=== PATIENT | female | born 1970 | race Two or more races ===

== ENCOUNTER 2017-12-23 16:54 | Emergency (ER) | payer MEDICAID, OTHER ==
[~2017-12-23] VITALS: Ht 167.6 cm; Wt 70.3 kg
[2017-12-23] MEDS ORDERED: DEXAMETHASONE SOD PHOS 10MG/1ML VIAL INJ IM ONE (19:30)
[2017-12-23 19:36] VITALS: BP 104/60
== END 2017-12-23 19:53 | disposition home or self-care (01) ==
LOC: ER 16:57
DX: J06.9 Acute upper respiratory infection, unspecified (principal); H66.93 Otitis media, unspecified, bilateral; R42 Dizziness and giddiness; Z88.0 Allergy status to penicillin
CPT/HCPCS: 70450; 96372; 99284; J1100

== ENCOUNTER 2022-12-29 10:29 | Emergency (ER) | payer MEDICAID ==
[~2022-12-29] VITALS: Ht 152.4 cm; Wt 71.5 kg
[2022-12-29] MEDS ORDERED: MECLIZINE HCL 25 MG TAB PO ONE (11:00)
[2022-12-29 11:13] LABS: Basophils # (auto) 0 10 ^3/uL (0-0.2); Basophils % (auto) 0.5 % (0.0-2.0); Eosinophils # (auto) 0.1 10 ^3/uL (0-0.8); Eosinophils % (auto) 1.1 % (0.0-7.0); Hematocrit 43.4 % (36.0-46.0); Hemoglobin 14.5 g/dL (12.2-16.2); Lymphocytes % (auto) 41.9 % (10.0-50.0); Mean Corpuscular Hemoglobin 27.9 pg (28.0-32.0); Mean Corpuscular Hgb Conc. 33.4 g/dL (32.0-36.0); Mean Corpuscular Volume 83.6 fL (80.0-100.0); Monocytes # (auto) 0.3 10 ^3/uL (0-1.3); Monocytes % (auto) 5.6 % (0.0-12.0); Neutrophils # (auto) 2.4 10 ^3/uL (1.6-8.6); Neutrophils % (auto) 50.9 % (37.0-80.0); Nucleated Red Blood Cells % 0.1 %; Red Blood Cells 5.19 10^6/uL (4.0-5.20); Red Cell Distribution Width 14.3 % (11.8-14.3); White Blood Cell 4.8 10^3/uL (4.4-10.8)
[2022-12-29 11:49] LABS: Urine Bacteria NONE SEEN /hpf (None Seen); Urine Blood Negative /uL (Negative); Urine Specific Gravity 1.009 (1.001-1.035); Urine WBC 1 /hpf (0 - 5)
[2022-12-29 11:53] LABS: Potassium 3.7 mmol/L (3.5-5.1)
[2022-12-29 12:00] LABS: BUN/Creatinine Ratio 31.7; Bilirubin, Total 0.6 mg/dL (0.2-1.0); Calcium 9.5 mg/dL (8.5-10.1); Magnesium 2.5 mg/dL (1.6-2.6); Total Protein 7.2 g/dL (6.4-8.2)
[2022-12-29 14:08] VITALS: BP 104/74
[2022-12-29] MEDS ORDERED: MECL25TA18 PO (17:10)
== END 2022-12-29 21:00 | disposition home or self-care (01) ==
LOC: ER 10:29
DX: R42 Dizziness and giddiness (principal); J45.909 Unspecified asthma, uncomplicated; R51.9 Headache, unspecified; Z79.899 Other long term (current) drug therapy
CPT/HCPCS: 36415; 70450; 71045; 80053; 81001; 82962; 83605; 83735; 84484; 85025; 93005; 99285; J8597

== ENCOUNTER 2024-06-11 13:23 | Emergency (ER) | payer MEDICAID ==
[~2024-06-11] VITALS: Ht 152.4 cm; Wt 69.9 kg
[~2024-06-11 13:23] MED LIST: MECL-90 PO
[2024-06-11 15:33] LABS: Basophils # (auto) 0 10 ^3/uL (0-0.2); Basophils % (auto) 0.5 % (0.0-2.0); Eosinophils # (auto) 0 10 ^3/uL (0-0.8); Eosinophils % (auto) 0.5 % (0.0-7.0); Hemoglobin 13.3 g/dL (12.2-16.2); Lymphocytes # (auto) 1.9 10 ^3/uL (0.4-5.4); Lymphocytes % (auto) 30.5 % (10.0-50.0); Mean Corpuscular Hemoglobin 27.7 pg (28.0-32.0); Mean Corpuscular Hgb Conc. 33.1 g/dL (32.0-36.0); Mean Corpuscular Volume 83.6 fL (80.0-100.0); Monocytes # (auto) 0.4 10 ^3/uL (0-1.3); Neutrophils % (auto) 62.5 % (37.0-80.0); Platelet Count (auto) 248 10^3/uL (140-450); Red Blood Cells 4.79 10^6/uL (4.0-5.20); Red Cell Distribution Width 14.7 % (11.8-14.3); White Blood Cell 6.4 10^3/uL (4.4-10.8)
[2024-06-11 15:40] LABS: Chloride 111 mmol/L (98-107); Potassium 3.6 mmol/L (3.5-5.1); Sodium 141 mmol/L (136-145)
[2024-06-11 15:41] LABS: Anion Gap 4 (5-15); Carbon Dioxide 26 mmol/L (20-30)
[2024-06-11 15:42] LABS: Calcium 10.2 mg/dL (8.7-10.4)
[2024-06-11 15:46] LABS: Glucose 107 mg/dL (74-106)
[2024-06-11 15:47] LABS: BUN/Creatinine Ratio 21.4 (10.0-20.0); Blood Urea Nitrogen 12 mg/dL (9-23)
[2024-06-11 15:48] LABS: INR 0.93 (0.9-1.15); Prothrombin Time 9.9 sec (9.3-11.8)
[2024-06-11 18:50] VITALS: BP 107/47; PULSE 100; RESP 18; TEMP 98.6; O2SAT 97
== END 2024-06-11 18:54 | disposition home or self-care (01) ==
LOC: ER 13:23
DX: S86.912A Strain of unspecified muscle(s) and tendon(s) at lower leg level, left leg, initial encounter (principal); J45.909 Unspecified asthma, uncomplicated; Z88.0 Allergy status to penicillin; X58.XXXA Exposure to other specified factors, initial encounter; Y93.89 Activity, other specified; Y92.89 Other specified places as the place of occurrence of the external cause; Y99.8 Other external cause status
CPT/HCPCS: 36415; 80048; 85025; 85379; 85610; 93971

== ENCOUNTER 2024-11-09 07:37 | Emergency (ER) | payer MEDICAID ==
[~2024-11-09] VITALS: Ht 152.4 cm; Wt 68.8 kg
[2024-11-09 08:02] VITALS: BP 102/60; PULSE 109; TEMP 97.9
--- NOTE | 2024-11-09 08:21 | ED.PDOC ---
Eye-HPI HPI Comments A 58 YEAR OLD FE/MALE PRESENTS TO THE ED WITH COMPLAINT OF SORE THROAT. PATIENT STATES SHE HAS BEEN EXPERIENCING A SORE THROAT, MILD COUGH, AND CONGESTION FOR THE PAST 6 DAYS. PATIENT REPORTS HER PAIN IS WORSE WHEN SWALLOWING. PATIENT NOTES SHE WENT TO [facility] 4 DAYS AGO AND HAD A COVID-19, INFLUENZA SWABS DONE ALL OF WHICH WERE NEGATIVE AND WAS PRESCRIBED DOXYCYCLINE AND ROBITUSSIN DM AFTER BEING DIAGNOSED WITH PNEUMONIA. PT HAS HX OF ASTHMA AND USES ALBUTEROL INHALER AT HOME. PATIENT DENIES FEVER, CHILLS, SHORTNESS OF BREATH, CHEST PAIN, ABDOMINAL PAIN, NAUSEA, VOMITING, HEADACHE, OR OTHER COMPLAINTS. NO OTHER SYMPTOMS OR MODIFYING FACTORS AT THIS TIME. PATIENT IS ALERT, ORIENTED X 4, AND HAS STEADY GAIT. Chief Complaint: Shortness of Breath Time Seen by MD: 07:43 Primary Care Provider: angela Peralta Notes: Nurses Notes, Medications, Allergies Allergies: Coded Allergies: Penicillins (Unverified Allergy, Unknown, 12/23/17) Home Meds Active Scripts Meclizine Hcl (Meclizine Hcl) 25 Mg Tab, 25 MG PO BIDP PRN for 3 Days, #10 MG Prov:LEONIE SELF 12/29/22 Information Source: Patient Mode of Arrival: Ambulatory Timing: Days Duration: Since onset, Days Prehospital treatment: None Quality: Pain, Red Lids: Normal Conjunctiva: Normal Cornea: Normal Pupils: Normal EOM: Normal Fundus: Normal Slit lamp exam: Normal Anterior chamber: Normal Mouth: Normal ENT Ear Exam: Normal, Normal, Normal Nose: Normal Sinuses: Normal Oropharynx: Tonsillar hypertrophy, Red Onset: Spontaneous Throat Exposed to: None History of: None Last Tetanus: Unknown Modifying factors: Nothing Associated signs and symptoms: Nasal Symptoms, Sore Throat Past Medical History PAST MEDICAL HISTORY: Anxiety, Asthma Surgical History: Denies all surgeries 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[employer]DER History Family History Family History: Reviewed,noncontributory to illness Social History Smoker: Non-Smoker Alcohol: Denies ETOH Use Drugs: Denies Drug Use Lives In: Home Constitutional: reports: others (ANXIOUS ); denies: chills, diaphoresis, fatigue, fever, malaise, sweats, weakness EENTM: reports: nose congestion, throat pain, throat swelling, voice changes; denies: blurred vision, double vision, ear bleeding, ear discharge, ear drainage, ear pain, ear ringing, eye pain, eye redness, hearing loss, mouth pain, mouth swelling, nasal discharge, nose bleeding, nose pain, photophobia, tearing, others Respiratory: reports: cough; denies: hemoptysis, orthopnea, SOB at rest, shortness of breath, SOB with excertion, stridor, wheezing, others Cardiovascular: denies: chest pain, dizzy spells, diaphoresis, Dyspnea on exertion, edema, irregular heart beat, left arm pain, lightheadedness, palpitations, PND, syncope, others Gastrointestinal: denies: abdomen distended, abdominal pain, blood streaked bowels, constipated, diarrhea, dysphagia, difficulty swallowing, hematemesis, melena, nausea, poor appetite, poor fluid intake, rectal bleeding, rectal pain, vomiting, others Genitourinary: denies: abnormal vagina bleeding, burning, dyspareunia, dysuria, flank pain, frequency, hematuria, incontinence, pain, , vagina discharge, urgency, others Neurological: denies: dizziness, fainting, headache, left sided numbness, left sided weakness, numbness, paresthesia, pre-existing deficit, right sided numbness, right sided weakness, seizure, speech problems, tingling, tremors, weakness, others Musculoskeletal: denies: back pain, gout, joint pain, joint swelling, muscle pain, muscle stiffness, neck pain, others Integumetry: denies: bruises, change in color, change in hair/nails, dryness, laceration, lesions, lumps, rash, wounds, others Allergic/Immunocompromised: denies: Difficulty Healing, Frequent Infections, H leonel, Itching, others Hematologic/Lymphatic: denies: anemia, blood clots, easy bleeding, easy bruising, swollen glands, others Endocrine: denies: excessive hunger, excessive sweating, excessive thirst, excessive urination, flushing, intolerance to cold, intolerance to heat, unexplained weight gain, unexplained weight loss, others Psychiatric: denies: anxiety, bipolar disorder, depression, hopeless, panic disorder, schizophrenia, sleepless, suicidal, others All Other Systems: Reviewed and Negative Physical Exam General Appearance: No Apparent Distress, Normal HEENT: PERRL/EOMI, Pharyngeal Erythema (TONSILLAR SWELLING, NO EXUDATES. ), TMs Normal Neck: Full Range of Motion, Non-Tender, Normal, Normal Inspection Respiratory: Chest Non-Tender, Decreased Breath Sounds, Expiration, No Accessory Muscle Use, No Respiratory Distress, Rhonchi, Wheezing (MILD ) Cardiovascular: No Edema, No JVD, No Murmur, No Gallop, Normal Peripheral Pulses, Regular Rate/Rhythm Breast Exam: Deferred Gastrointestinal: No Organomegaly, Non Tender, No Pulsatile Mass, Normal Bowel Sounds, Soft Genitalia: Deferred Pelvic: Deferred Rectal: Deferred Extremities: No calf tenderness, Normal capillary refill, Normal inspection, Normal range of motion, Non-tender, No pedal edema Musculoskeletal : Apperance: Normal Neurologic: Alert, online marketing analyst II-XII nml as Tested, No Motor Deficits, Normal Affect, Normal Mood, No Sensory Deficits Cerebellar Function: Normal Reflexes: Normal Skin: Dry, Normal Color, Warm Peripheral Pulses: 2+ carotid (R), 2+ carotid (L) Lymphatic: No Adenopathy Was a procedure done? Was a procedure done?: No EENT DIFF Eye: N/A Ear: Otitis Media, Pharyngitis, Sinusitis Nose: N/A Mouth: N/A Sore Throat: Pharyngitis, Streptococcal, Viral Pharyngitis, URI X-Ray, Labs, Meds, VS Vital Signs Date Time Temp Pulse Resp B/P (MAP) Pulse Ox O2 Delivery O2 Flow Rate FiO2 11/09/24 08:32 18 95 Room Air* 0 21 11/09/24 08:02 109 22 93 Room Air 11/09/24 08:02 97.9 109 22 102/60 (74) 93 97.9 11/09/24 07:40 97.9 109 22 102/60 (74) 93 11/09/24 07:40 Room Air* 0 21 11/09/24 07:40 93 Room Air* 0 21 Current Medications Medications (Trade) Dose Ordered Sig/Paulina Route Start Time Stop Time Status Last Admin Methylprednisolone Sodium Succinate (Solu Medrol) 125 mg ONCE ONCE IM 11/09/24 08:30 11/09/24 08:31 DC 11/09/24 08:22 Ceftriaxone Sodium (Rocephin) 1,000 mg ONCE ONCE IM 11/09/24 08:30 11/09/24 08:31 DC 11/09/24 08:22 Albuterol (Ventolin Medneb) 2.5 mg ONCE ONCE NEB 11/09/24 08:30 11/09/24 08:31 DC 11/09/24 08:32 Ipratropium Muse (Atrovent Medneb) 0.5 mg ONCE ONCE NEB 11/09/24 08:30 11/09/24 08:31 DC 11/09/24 08:32 Procedure: XY CHEST TWO VIEWS ROUTINE 11/09/2024 08:09 AM Indication: COUGH AND SOB, HX OF PNEUMONIA X 6 DAYS AGO Comparison: None TECHNIQUE: XY CHEST TWO VIEWS ROUTINE FINDINGS: Medical devices: None. Cardiomediastinal: The heart is normal in size. Pulmonary vasculature is within normal limits. Lungs: No focal pulmonary opacity is seen. The costophrenic angles are clear. No pneumothorax. Bones/soft tissues: No acute abnormality is noted. IMPRESSION: 1. No acute cardiopulmonary disease. ATED BY: NAOMI NICHOLS MD DICTATED DATE/TIME: 11/09/24822 SIGNED BY: NAOMI NICHOLS MD SIGNED DATE/TIME: 11/09/24822 CC: X-Ray, Labs, Meds, VS Comment EXTERNAL MEDICAL RECORDS REVIEWED: [NONE] INDEPENDENT HISTORIANS: [NONE] SOCIAL DETERMINANTS OF HEALTH: [NONE] LABS ORDERED: NONE REVIEWED AND INTERPRETED RESULTS: NONE IMAGING ORDERED: XR CHEST TREATMENTS ORDERED: ROCEPHIN 1G IM, SOLU-MEDROL 125MG IM, DUONEB TREATMENT 3MG INHL PROCEDURES PERFORMED: NONE CRITICAL CARE TIME: NONE I HAVE DISCUSSED THE PATIENT WITH THE ATTENDING PHYSICIAN DR. GARCIA AND HE AGREES WITH THE PATIENT'S PLAN OF CARE AND DISPOSITION. BASED ON HISTORY OF PRESENT ILLNESS, AND PHYSICAL EXAM, PATIENT WILL BE DISCHARGED HOME. DISCUSSED PLAN FOR DISCHARGE HOME WITH RX []. MEDICATION WARNINGS GIVEN. SHARED DECISION MAKING: PATIENT INSTRUCTED TO FOLLOW UP WITH PRIMARY CARE PROVIDER IN 1-2 DAYS FOR RE-EVALUATION OF SYMPTOMS. PATIENT VERBALIZES UNDERSTANDING TO RETURN TO ED FOR NEW OR WORSENING SYMPTOMS OR IF FOLLOW UP WITH PCP CANNOT BE OBTAINED. PATIENT FEELS COMFORTABLE GOING HOME AT THIS TIME. ALL QUESTIONS ADDRESSED AT TIME OF DISCHARGE. Images Reviewed?: Images reviewed and evaluated by me Time of 1ST Reevaluation: 09:00 Reevaluation 1ST: Improved Patient Education/Counseling: Diagnosis, Treatment, Need For Follow Up Family Education/Counseling: Diagnosis, Treatment, Need For Follow Up Medical Screening: No EMC Exist At This Time Departure 1 Departure Time of Disposition: 09:00 Impression: Primary Impression: Acute asthmatic bronchitis Additional Impression: Acute tonsillitis Qualified Codes: J03.90 - Acute tonsillitis, unspecified Disposition: HOME / SELF CARE / HOMELESS Condition: Stable Additional Instructions: FOLLOW-UP WITH PCP IN 1 TO 2 DAYS. TAKE MEDICATIONS PRESCRIBED. RETURN TO ED FOR ANY NEW OR WORSENING SYMPTOMS. e-Prescriptions Lidocaine HCl (Mouth-Throat) (Lidocaine HCl Viscous) 2 % Nela 10 ML MT TID, #100 ML Prov: BLU MCALLISTER 11/09/24 Methylprednisolone (Medrol Dosepak) 4 Mg Charles 4 MG PO UD, #21 TAB UAD Prov: BLU MCALLISTER 11/09/24 Discharged With: Self Critical Care Note Critical Care Time?: No Stability Stability form required: No I personally scribed for BLU MCALLISTER ([email or web address]) on 11/09/24 at 08:21. Electronically submitted by Balwinder Davis ([email or web address]). I personally scribed for BLU MCALLISTER ([email or web address]) on 11/09/24 at 08:45. Electronically submitted by Balwinder Davis ([email or web address]). BLU MCALLISTER Nov 09, 2024 08:21
[2024-11-09] MEDS: methylPREDNISolone SOD SUCC 125 MG/2 ML VL IM ONE (08:22)
[2024-11-09] MEDS: cefTRIAXone SOD 1,000 MG VL IM ONE (08:22)
--- NOTE | 2024-11-09 08:25 | DVH ---
Procedure: XY CHEST TWO VIEWS ROUTINE 11/09/2024 08:09 AM Indication: COUGH AND SOB, HX OF PNEUMONIA X 6 DAYS AGO Comparison: None TECHNIQUE: XY CHEST TWO VIEWS ROUTINE FINDINGS: Medical devices: None. Cardiomediastinal: The heart is normal in size. Pulmonary vasculature is within normal limits. Lungs: No focal pulmonary opacity is seen. The costophrenic angles are clear. No pneumothorax. Bones/soft tissues: No acute abnormality is noted. IMPRESSION: 1. No acute cardiopulmonary disease.
[2024-11-09 08:32] VITALS: RESP 18
[2024-11-09] MEDS: ALBUTEROL SULF 2.5 MG/0.5ML(0.5%) NEB SOLN NEB ONE (08:32)
[2024-11-09] MEDS: IPRATROPIUM BROM 0.5 MG/2.5ML INH SOL NEB ONE (08:32)
[2024-11-09] MEDS ORDERED: LIDO2SOL26 MT (08:54)
[2024-11-09] MEDS ORDERED: METH4PAK PO (08:54)
[2024-11-09 08:56] VITALS: O2SAT 100
== END 2024-11-09 09:00 | disposition home or self-care (01) ==
LOC: ER 07:37
DX: J45.909 Unspecified asthma, uncomplicated (principal); J03.90 Acute tonsillitis, unspecified; F41.9 Anxiety disorder, unspecified; Z88.0 Allergy status to penicillin; R05.9 Cough, unspecified; R09.81 Nasal congestion
CPT/HCPCS: 71046; 94640; 96372; 99284; J0696; J2919

== ENCOUNTER 2025-08-07 08:51 | Outpatient (CLI) | payer MEDICAID ==
[~2025-08-07 08:51] MED LIST changes: +LIDO2SOL26 MT; +METH4PAK PO
[2025-08-07 09:21] LABS: Hematocrit 41.0 % (36.0-46.0); Hemoglobin 13.5 g/dL (12.2-16.2); Mean Corpuscular Hemoglobin 27.3 pg (28.0-32.0); Mean Corpuscular Volume 83.2 fL (80.0-100.0); Nucleated Red Blood Cells % 0.0 %
[2025-08-07 09:51] LABS: Alanine Aminotransferase 20 U/L (7-40); Albumin 4.3 g/dL (3.2-4.8); Alkaline Phosphatase 48 U/L (46-116); Anion Gap 9 (5-15); BUN/Creatinine Ratio 20.3 (10.0-20.0); Blood Urea Nitrogen 13 mg/dL (9-23); Calcium 9.5 mg/dL (8.7-10.4); Carbon Dioxide 27 mmol/L (20-31); Glucose 98 mg/dL (74-106); HDL Cholesterol 57 mg/dL (40-59); Potassium 4.5 mmol/L (3.5-5.1); Sodium 144 mmol/L (136-145); Total Protein 6.7 g/dL (5.7-8.2)
[2025-08-07 09:52] LABS: Bilirubin, Total 0.5 mg/dL (0.2-1.0); Urine Protein, UAD Negative (Negative)
[2025-08-07 09:53] LABS: Chloride 108 mmol/L (98-107); Cholesterol 268 mg/dL (< 200); Triglycerides 239 mg/dL (< 150)
[2025-08-09 03:07] LABS: Chlamydia Trachomatis, NAA Negative (Negative); Neisseria gonorrhoeae, NAA Negative (Negative)
== END 2025-08-07 17:00 | disposition home or self-care (01) ==
LOC: LAB 08:51
PROVIDERS: ATTEND Internal Medicine
DX: E78.2 Mixed hyperlipidemia (principal); R73.01 Impaired fasting glucose; Z13.1 Encounter for screening for diabetes mellitus; Z12.11 Encounter for screening for malignant neoplasm of colon; Z00.01 Encounter for general adult medical examination with abnormal findings
CPT/HCPCS: 36415; 80053; 80061; 81001; 83036; 84439; 84443; 85025; 86735; 86780; 86787

== ENCOUNTER → 2025-08-15 | Outpatient (CLI) | payer MEDICAID | END | disposition home or self-care (01) | LOC: LAB 15:36 | PROVIDERS: ATTEND Internal Medicine | DX: E78.2 Mixed hyperlipidemia (principal); R73.01 Impaired fasting glucose; Z12.11 Encounter for screening for malignant neoplasm of colon; Z13.1 Encounter for screening for diabetes mellitus; Z00.01 Encounter for general adult medical examination with abnormal findings | CPT/HCPCS: 82274 ==